=== PATIENT | female | born 1940 | race Caucasian/White ===

== ENCOUNTER 2022-06-04 09:41 | Outpatient (CLI) | payer OTHER, SELFPAY | END 2022-06-04 09:42 | disposition home or self-care (01) | LOC: INJ CL 09:43 | PROVIDERS: Visit Provider Family Medicine | DX: M25.551 Pain in right hip (principal); M70.61 Trochanteric bursitis, right hip | CPT/HCPCS: 20610; 77002; J0702; Q9966 ==

== ENCOUNTER 2022-12-03 08:24 | Outpatient (CLI) | payer OTHER, SELFPAY | END 2022-12-03 08:25 | disposition home or self-care (01) | LOC: INJ CL 08:26 | PROVIDERS: PCP Family Medicine; Visit Provider Family Medicine | DX: M47.816 Spondylosis without myelopathy or radiculopathy, lumbar region (principal) | CPT/HCPCS: 64493; J0702; Q9966 ==